=== PATIENT | male | born 1945 | race Caucasian/White ===

== ENCOUNTER 2017-09-27 12:37 | Emergency (ER) | payer OTHER ==
[~2017-09-27] VITALS: Ht 157.5 cm; Wt 84.4 kg
[~2017-09-27 12:37] MED LIST: ASPIRIN325 MG; CARAFATE1 GM/10 ML PO; CATAFLAM50 MG PO; CIPRO500 MG PO; FLAGYL500MG PO; INTESTINEX1 CA1 PO; IRBESARTAN75 MG; IRBESARTAN75 MG PO; JANUVIA100 MG; JANUVIA100 MG PO; LABETALOL HCL200 MG; LABETALOL HCL200 MG PO; NEURIN SL; PEPCID40 MG PO; PERCOCET 5/3251 TAB PO; PROBIOTIC & AC1 EACH PO; PROTONIX40 MG PO; ULTRACET PO
== END 2017-09-27 15:47 | disposition home or self-care (01) ==
LOC: ER 12:37
DX: L30.8 Other specified dermatitis (principal)

== ENCOUNTER 2021-12-03 07:57 | Outpatient (CLI) | payer OTHER | END 2021-12-03 07:58 | disposition home or self-care (01) | LOC: NUCLEAR 07:57 | PROVIDERS: ATTEND Internal Medicine Geriatric Medicine | DX: I82.409 Acute embolism and thrombosis of unspecified deep veins of unspecified lower extremity (principal) ==

== ENCOUNTER 2024-07-22 15:06 | Outpatient (CLI) | payer OTHER | END 2024-07-22 15:13 | disposition home or self-care (01) | LOC: LAB 15:06 | PROVIDERS: ATTEND Urology | DX: R97.20 Elevated prostate specific antigen [PSA] (principal) ==

== ENCOUNTER 2024-08-24 07:07 | Outpatient (CLI) | payer OTHER | END 2024-08-24 07:17 | disposition home or self-care (01) | LOC: SONOGRAMA 07:07 | PROVIDERS: ATTEND Urology | DX: C61 Malignant neoplasm of prostate (principal); N40.1 Benign prostatic hyperplasia with lower urinary tract symptoms; R97.20 Elevated prostate specific antigen [PSA] ==